=== PATIENT | female | born 1980 | race Hispanic/Latino ===

== ENCOUNTER 2019-08-14 22:04 | Emergency (ER) | payer MEDICAID, OTHER, SELFPAY ==
[2019-08-14 23:18] LABS: BHCG - Serum POSITIVE (NEGATIVE); Pregs Control Background? CLEAR/WHITE (CLR/WHITE); Pregs Control Bar Appear? YES (CONTROL BAR)
[2019-08-14 23:24] LABS: #Basophils 0.1 thou/uL (0.0-0.2); #Eosinphils 0.2 thou/uL (0.0-0.7); #Lymphocytes 2.4 thou/uL (1.20-3.40); #Monocytes 0.6 thou/uL (0.11-0.59); #Neutrophils 5.5 thou/uL (1.40-6.50); %Basophils 0.7 % (0.0-1.0); %Eosinophils 1.8 % (0.0-10.0); %Lymphocytes 27.3 % (21.0-51.0); %Monocytes 6.7 % (0.0-10.0); %Neutrophils 63.4 % (42.0-75.0); Hemoglobin 13.2 g/dL (12.0-16.0); Mean Corpuscular HGB CONC 33.3 g/dL (32.0-36.0); Mean Corpuscular Hemoglobin 29.6 pg (27.0-31.0); Mean Corpuscular Volume 88.7 fL (78.0-98.0); Platelet Count 245 thou/uL (130-400); RBC Distribution Width 12.3 % (11.5-14.5); Red Blood Cell (RBC) Count 4.46 mill/uL (4.20-5.40); White Blood Cell (WBC) Count 8.6 thou/uL (4.8-10.8)
[2019-08-15 00:24] LABS: Bilirubin Negative (Negative); Blood, Urine 2+ (Negative); Clarity Clear (Clear); Glucose, Urine (Dipstick) Normal (Negative); Leukocyte Negative Leu/uL (Negative); Nitrite Negative (Negative); Protein, Urine (Dipstick) Negative (Neg-Trace); Urobilinogen Normal mg/dL (Less than 2); WBC/HPF 0-3 HPF (0-3)
[2019-08-15 00:25] LABS: Bacteria/HPF 1+ HPF (None Seen)
--- NOTE | 2019-08-15 07:40 | ULT ---
ULTRASOUND PELVIC TRANSVAGINAL WITH DOPPLER: History: Vaginal bleeding. 10-weeks . Comparison: None. FINDINGS: Grayscale and doppler with spectral analysis of the pelvis was performed transabdominal and transvagi nal approach. There is an intrauterine gestational sac with mean sac diameter of 2.13 cm. Yolk sac is present. No pole appreciated. Doppler flow is shown to both ovaries. Corpus medial cyst right ovary. No free fluid in the pelvis. Moderate subchorionic hemorrhage around the gestational sac. The uterus measures 9.4 x 6.1 x 7.6 cm. IMPRESSION: 1. Findings suspicious for, but not diagnostic of, failure. Large gestational sac with mean sac diameter of 2.13 without a pole. Close follow up ultrasound and HCG recommended. 2. Right ovarian corpus medial cyst. 3. Moderate sized subchorionic hemorrhage. 4. Enlarged yolk sac at 1.2 cm. POS: HOME
== END 2019-08-15 00:52 | disposition home or self-care (01) ==
LOC: ERS 22:04
DX: O20.0 Threatened abortion (principal); O24.111 Pre-existing type 2 diabetes mellitus, in pregnancy, first trimester; E11.9 Type 2 diabetes mellitus without complications; Z3A.10 10 weeks gestation of pregnancy
CPT/HCPCS: 36415; 76856; 81003; 81015; 84702; 84703; 85025; 86900; 86901

== ENCOUNTER 2019-10-13 12:59 | Emergency (ER) | payer OTHER ==
[2019-10-14 12:55] LABS: SARS-CoV-2 MS2 Positive; SARS-CoV-2 N Gene Positive; SARS-CoV-2 S Gene Positive; SARS-CoV-2 orf1ab Positive
== END 2019-10-13 14:04 | disposition home or self-care (01) ==
LOC: ERS 12:59
DX: U07.1 COVID-19 (principal); E11.9 Type 2 diabetes mellitus without complications
CPT/HCPCS: 87635; 99283; U0003